=== PATIENT | female | born 1975 ===

== ENCOUNTER 2024-04-05 08:20 | Day surgery (SDC) | payer OTHER ==
[2024-04-05] MEDS ORDERED: DIPHENHYDRAMINE HCL 50 MG/ML VIAL 1ML IV ONE (13:30)
[2024-04-05] MEDS ORDERED: MIDAZOLAM HCL 2 MG/2 ML VIAL IV ONE (13:30)
[2024-04-05] MEDS ORDERED: fentaNYL CITRATE 50 MCG/ML AMPUL IV PUSH ONE (13:30)
[2024-04-05] MEDS ORDERED: ONDANSETRON HCL 2 MG/ML VIAL IV ONE (13:30)
== END 2024-04-05 15:05 | disposition home or self-care (01) ==
LOC: AMB-ENDOS 08:20 → CIR.AMB 13:45 → AMB-ENDOS 15:05
PROVIDERS: ATTEND Colon & Rectal Surgery
DX: K63.5 Polyp of colon (principal); K64.8 Other hemorrhoids; Z88.6 Allergy status to analgesic agent